=== PATIENT | female | born 2000 | race Two or more races ===

== ENCOUNTER 2025-03-21 10:18 | Inpatient (IN) | payer OTHER, SELFPAY ==
[2025-03-21] VITALS (33 sets, daily range): BP systolic 90–124; BP diastolic 44–79; PULSE 47–86; RESP 16–20; TEMP 36.6–37.3; O2SAT 94–100; BMI 24.7
--- NOTE | 2025-03-21 10:36 | CRLHL7_ITS ---
For Patients: As a result of the Century Cures Act, medical imaging exams and procedure reports are released immediately into your electronic medical record. You may view this report before your referring provider. If you have questions, please contact your health care provider. INDICATION: Right lower quadrant pain. TECHNIQUE: Axial intravenously infused CT cuts were performed from above the diaphragm to below the ischial tuberosities with the infusion of 56 mL of Isovue-370. Images were formatted and reviewed in the sagittal, axial and coronal planes. MIP images of the lung bases. COMPARISON: None. FINDINGS: There is a large abscess deep within the right side of the pelvis that measures approximately 6.9 x 4.9 cm in the axial plane and 5.2 cm cranial caudally. This most likely a tubo-ovarian abscess. There is large amount of free fluid in the pelvis. The appendix can not be identified with certainty. There is no free intraperitoneal air. The liver, spleen, pancreas, adrenals and kidneys appear normal. There are no enlarged retroperitoneal, mesenteric, iliac or inguinal lymph nodes. The uterus and urinary bladder appear normal. There are no nodules or masses the lung bases. There are no lytic or sclerotic skeletal lesions. IMPRESSION: Large abscess deep within the right side of the pelvis most likely representing a tubo-ovarian abscess. The appendix cannot be identified with certainty and therefore is likely not the source of inflammation. Please note that all CT scans at this facility use dose modulation, iterative reconstruction, and/or weight-based dosing when appropriate to reduce radiation dose to as low as reasonably achievable. Dictated by Chapin Oreilly MD @ 03/21/2025 12:15:35 PM (Electronically Signed)
--- NOTE | 2025-03-21 10:37 | ED_ITS ---
HPI - General Adult General Chief complaint: Abdominal Pain Stated complaint: abdominal pain Time Seen by Provider: 03/21/25 10:32 History of Present Illness HPI narrative: Patient is a 24-year-old woman who comes in today with approximately 6 hours of right lower quadrant pain. She states that she has had a torsed ovary in the past which reverted spontaneously to normal. Patient's pain is 610 located in the right lower quadrant. There is no radiation. She has had some vomiting but no fevers no chills no night sweats no dysuria. Patient came in by ambulance and is now feeling little bit better but still having quite a bit pain in the right lower quadrant. Related Data Home Medications ?Medication ?Instructions ?Recorded ?Confirmed No Known Home Medications 03/21/25 0805/07 Allergies Allergy/AdvReac Type Severity Reaction Status Date / Time Penicillins Allergy Intermediate Verified 03/21/25 11:29 tree nut Allergy Intermediate Verified 03/21/25 11:29 Review of Systems Status of ROS: Reports: 10 or more systems reviewed and unremarkable except as noted in History and below Exam Narrative: Exam Narrative: EXAM GENERAL: Patient appears comfortable and well. EYES: No scleral icterus. LYMPH: No supraclavicular or cervical lymphadenopathy. SKIN: Visible skin seen during exam normal or with benign process only. EXT: No dependent lower extremity pedal edema. HEART: Regular rate and rhythm with no murmurs, rubs, or gallops. LUNGS: Clear to auscultation bilaterally with no crackles or wheezes. ABD: Tender to palpation the right lower quadrant no other palpable abnormaliti es. PSYCH: Good eye contact, speech is not pressured. Const: Vital Signs, click to edit/add: Vital Signs - 24 hr 03/21/25 10:23 03/21/25 10:24 03/21/25 10:30 Temperature 97.8 F Pulse Rate 49 L 56 L Pulse Rate [Pulse Oximeter] 60 Respiratory Rate 20 Blood Pressure Blood Pressure [Ri ght Upper Arm] 124/73 Pulse Oximetry 99 99 94 Oxygen Delivery Me thod Room Air 03/21/25 10:31 03/21/25 10:46 03/21/25 10:49 Temperature Pulse Rate 58 L 57 L Pulse Rate [Pulse Oximeter] Respiratory Rate Blood Pressure 111/74 108/65 Blood Pressure [Ri ght Upper Arm] Pulse Oximetry 95 98 Oxygen Delivery Me thod 03/21/25 11:00 03/21/25 11:01 03/21/25 11:15 Temperature Pulse Rate 62 64 47 L Pulse Rate [Pulse Oximeter] Respiratory Rate Blood Pressure 110/58 L Blood Pressure [Ri ght Upper Arm] Pulse Oximetry 97 98 99 Oxygen Delivery Me thod 03/21/25 11:16 03/21/25 11:38 03/21/25 11:45 Temperature Pulse Rate 55 L 86 61 Pulse Rate [Pulse Oximeter] Respiratory Rate Blood Pressure 109/52 L Blood Pressure [Ri ght Upper Arm] Pulse Oximetry 98 99 100 Oxygen Delivery Me thod 03/21/25 11:47 03/21/25 12:00 03/21/25 12:01 Temperature Pulse Rate 53 L 47 L 48 L Pulse Rate [Pulse Oximeter] Respiratory Rate Blood Pressure 93/44 L 94/52 L Blood Pressure [Ri ght Upper Arm] Pulse Oximetry 100 98 98 Oxygen Delivery Me thod 03/21/25 12:15 03/21/25 12:16 03/21/25 12:38 Temperature Pulse Rate 51 L 54 L 66 Pulse Rate [Pulse Oximeter] Respiratory Rate Blood Pressure 90/52 L Blood Pressure [Ri ght Upper Arm] Pulse Oximetry 98 98 99 Oxygen Delivery Me thod 03/21/25 12:42 Temperature Pulse Rate Pulse Rate [Pulse Oximeter] Respiratory Rate Blood Pressure 107/60 Blood Pressure [Ri ght Upper Arm] Pulse Oximetry Oxygen Delivery Me thod Course Course ED Course: Patient seen examined. Serum CBC CMP lipase UA pending. CT abdomen pelvis pending. Vital Signs Vital signs: Initial Vital Signs Temperature 97.8 F 03/21/25 10:23 Temperature Source Temporal Artery Scan 03/21/25 10:23 Pulse Rate 60 03/21/25 10:23 Respiratory Rate 20 03/21/25 10:23 Blood Pressure 124/73 03/21/25 10:23 Blood Pressure Mean 90 03/21/25 10:23 Pulse Oximetry 99 03/21/25 10:23 Oxygen Delivery Method Room Air 03/21/25 10:23 Vital Signs Temperature 97.8 F 03/21/25 10:23 Pulse Rate 60 03/21/25 10:23 Respiratory Rate 20 03/21/25 10:23 Blood Pressure 124/73 03/21/25 10:23 Pulse Oximetry 99 03/21/25 10:23 Oxygen Delivery Method Room Air 03/21/25 10:23 Temperature 97.8 F 03/21/25 10:23 Pulse Rate 66 03/21/25 12:38 Respiratory Rate 20 03/21/25 10:23 Blood Pressure 107/60 03/21/25 12:42 Pulse Oximetry 99 03/21/25 12:38 Oxygen Delivery Method Room Air 03/21/25 10:23 Medical Decision Making MDM Narrative Medical decision making narrative: Patient is a 24-year-old woman comes in today with right lower quadrant pain. She has fairly substantial tubal ovarian abscess in the right lower quadrant CT scan. Has a white count that is elevated. Cultures are pending electrolytes are stable. I have been test with OBGYN we will be admitting for IV antibiotics and close observation to the roving department supervisor service. Lab Data Labs: Lab Results 03/21/25 03/21/25 Range/Units 10:50 12:37 WBC 16.66 H (4.50-11.00) K/uL RBC 4.35 (4.00-5.20) m/uL Hgb 12.5 (12.0-16.0) gm/dL Hct 37.5 (33.0-51.0) % MCV 86 (80-100) fL MCH 29 (26-34) pg MCHC 33 (32-36) gm/dL RDW Coeff of Aram 13.5 (11.5-15.5) % Plt Count 301 (140-440) K/uL Neut % (Auto) 88.2 H (42.0-72.0) % Lymph % (Auto) 7.1 L (20-44) % [place] % (Auto) 4.2 (0.0-11.0) % Eos % (Auto) 0.2 (0.0-7.0) % Baso % (Auto) 0.2 (0.0-3.0) % Neut # (Auto) 14.70 H (1.7-7.0) K/uL Lymph # (Auto) 1.20 (0.90-2.90) K/uL [place] # (Auto) 0.70 (0.00-0.90) K/UL Eos # (Auto) 0.00 (0.00-0.50) K/uL Baso # (Auto) 0.00 (0.00-0.30) K/uL Abs Immat Gran (auto) 0.00 (0.00-0.30) K/uL Imm/Tot Granulo (auto) 0.1 % Sodium 135 (135-149) mmol/L Potassium 3.8 (3.6-5.1) mmol/L Chloride 106 (96-114) mmol/L Carbon Dioxide 22 (20-32) mmol/L Anion Gap 7 (7-15) mEq/L BUN 15 (5-24) mg/dL Creatinine 0.5 (0.5-1.5) mg/dL Estimated GFR 133 ml/min Glucose 96 (60-115) mg/dL Calcium 8.9 (8.4-10.6) mg/dL Total Bilirubin 0.6 (0.1-1.5) mg/dL AST 36 H (12-35) U/L ALT 16 (4-35) U/L Alkaline Phosphatase 78 (40-150) U/L Total Protein 7.4 (6.0-8.3) g/dL Albumin 4.2 (3.3-5.0) g/dL Lipase 164 (23-300) U/L HCG, Qual Negative (Negative) Urine Color Yellow (Yellow) Urine Appearance Clear (Clear) Urine pH 6.5 (5.0-8.5) Ur Specific [place] 1.010 (1.000-1.030) Urine Protein Negative (Negative) Urine Glucose (UA) Negative (Negative) Urine Ketones 1+ A (Negative) Urine Blood Trace-intact A (Negative) Urine Nitrite Negative (Negative) Urine Bilirubin Negative (Negative) Urine Urobilinogen 0.2 (0.2-1.0) Ur Leukocyte Esterase Negative (Negative) Urine RBC 2-5 A (0-2) Urine WBC 0-2 (0-5) Ur Squamous Epith Cells Few (None-Few) Urine Bacteria None (None) Discharge Plan Discharge Clinical Impression: Right tubo-ovarian abscess Patient Disposition: Home, Self-Care Condition: Stable Instructions: Ovarian Abscess (ED) Activity Level: Other Discharge Diet: Other Prescriptions: No Action No Known Home Medications Follow Up/Referrals: Provider,Not a Local [Primary Care Provider, Family Practice] Stand Alone Forms: [facility] Support Servic[facility] Info Instructions
[2025-03-21 10:58] LABS: Hematocrit 37.5 % (33.0-51.0); Hemoglobin* 12.5 gm/dL (12.0-16.0); Immature Granulocytes Pct Auto 0.1 %; Mean Corpuscular HGB Conc 33 gm/dL (32-36); Mean Corpuscular Hemoglobin 29 pg (26-34); Mean Corpuscular Volume 86 fL (80-100); RDW Coefficient of Variation % 13.5 % (11.5-15.5); Red Blood Count 4.35 m/uL (4.00-5.20); White Blood Count* 16.66 K/uL (4.50-11.00)
[2025-03-21 10:59] LABS: Immature Granulocytes Abs Auto 0.00 K/uL (0.00-0.30); Lymphocytes Absolute Auto 1.20 K/uL (0.90-2.90); Slide Review Reflex No
[2025-03-21 11:09] LABS: Albumin* 4.2 g/dL (3.3-5.0); Chloride* 106 mmol/L (96-114); Sodium* 135 mmol/L (135-149)
[2025-03-21 11:10] LABS: Potassium* 3.8 mmol/L (3.6-5.1)
[2025-03-21 11:12] LABS: Alanine Aminotransferase* 16 U/L (4-35); Alkaline Phosphatase* 78 U/L (40-150); Anion Gap 7 mEq/L (7-15); Aspartate Amino Transferase* 36 U/L (12-35); Bilirubin Total* 0.6 mg/dL (0.1-1.5); Blood Urea Nitrogen* 15 mg/dL (5-24); Calcium* 8.9 mg/dL (8.4-10.6); Carbon Dioxide* 22 mmol/L (20-32); Creatinine* 0.5 mg/dL (0.5-1.5); Estimated Glomerular Filt Rate 133 ml/min; Glucose* 96 mg/dL (60-115); Total Protein* 7.4 g/dL (6.0-8.3)
[2025-03-21 11:26] LABS: HCG Qualitative Serum* Negative (Negative)
[2025-03-21 12:41] LABS: Appearance Urine Clear (Clear)
--- NOTE | 2025-03-21 13:04 | CRLHL7_ITS ---
For Patients: As a result of the Cures Act, medical imaging exams and procedure reports are released immediately into your electronic medical record. You may view this report before your referring provider. If you have questions, please contact your health care provider. INDICATION: Abscess. COMPARISON: CT scan of the abdomen and pelvis dated 21 March 2025. FINDINGS: A transabdominal and endovaginal pelvic ultrasound shows a uterus of normal size, contour, echogenicity. Normal appearance of the endometrial stripe which measures 8 mm in thickness. 7.7 x 6.7 x 3.8 cm irregular right ovarian cyst containing a small amount of debris. The right ovary is otherwise unremarkable. Color and spectral Doppler analysis shows normal appearance of the blood flow to the right ovary. The left ovary is not visualized. Small amount of echogenic free fluid in the pelvis. Impression : 1. 7.7 cm probable collapsing right ovarian cyst. 2. Small amount of probable hemorrhagic free fluid in the pelvis. Dictated by Vince Barker MD @ 03/21/2025 2:39:09 PM (Electronically Signed)
[2025-03-21] MEDS: DOXYCYCLINE HYCLATE 100 MG PO (13:57)
[2025-03-21] MEDS: cefTRIAXone 1 GM in 0.9 % SODIUM CHLORIDE Mini-bag 100 ML IVPB (13:58)
[2025-03-21] MEDS: ONDANSETRON 2 MG/ML inj 4 MG IVP (14:36)
[2025-03-21] MEDS: metroNIDAZOLE 500 MG/100 ML PIGGYBACK 100 MG IVPB (14:42)
[2025-03-21] MEDS: FLUCONAZOLE 150 MG TABLET PO (17:21)
--- NOTE | 2025-03-21 18:01 | PM.GYNCN1 ---
MANAGER OF MANUFACTURING - CN: HPI Data of Consult Date Seen: 03/21/25 Patient: Other Consult date: 03/21/25 Requesting Physician: Boni Villasenor MD Primary Care Provider: Not a Local Provider Consult Narrative Narrative: Yenni Ni is a 24 year old female who presented to the ER today with chief complaint of abdominal pain. This is present throughout her abdomen, worse in lower abdomen, and severe. She reports at least two other occasions of similarly severe pain. One was accompanied by a diagnosis of torsion that she was told had resolved by the time she presented to the hospital. The other was accompanied by a ruptured ovarian cyst. She is G0. She is currently sexually active and using condoms for contraception. She denies any history of abnormal pap or STI. She has not had diminshed appetite. In fact, she asks when she can next eat during our interview. Pertinent labs and studies are as noted below. In summary, the CT of abdomen and pelvis was read as pelvic abscess. The subsequent pelvic US was read as hemorrhage ovarian cyst with small amount of free pelvic fluid; this looks like blood to my eye. cc:: CC: Hitesh Abad MD [facility] Medical History (Updated 03/21/25 @ 18:25 by Maria Day MD) Recurrent vaginitis ?N76.0 - Acute vaginitis (ICD-10) Vasculitis ?I77.6 - Arteritis, unspecified (ICD-10) Sinusitis ?J32.9 - Chronic sinusitis, unspecified (ICD-10) Surgical History (Updated 03/21/25 @ 18:07 by Maria Day MD) No pertinent past surgical history ?Z78.9 - Other specified health status (ICD-10) Family History (Updated 03/21/25 @ 18:09 by Maria Day MD) Brother Asthma Father Diabetes Mother Diabetes Sister Cholelithiasis Social History (Updated 03/21/25 @ 18:10 by Maria Day MD) Narrative: She is from [facility]. 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 She drinks alcohol occasionally. She doesn't smoke or use recreational drugs. Meds Home Medications and Allergies Home Medications ?Medication ?Instructions ?Recorded ?Confirmed ?Type No Known Home Medications 03/21/25 03/21/25 History Allergies Allergy/AdvReac Type Severity Reaction Status Date / Time Penicillins Allergy Intermediate Verified 03/21/25 11:29 tree nut Allergy Intermediate Verified 03/21/25 11:29 MANAGER OF MANUFACTURING - Exam Physical Exam: Vital signs: Temp Pulse Resp BP Pulse Ox O2 Del Method 97.8 F 76 20 111/69 98 Room Air 03/21/25 10:23 03/21/25 14:46 03/21/25 10:23 03/21/25 14:46 03/21/25 14:46 03/21/25 10:23 Narrative: Physical exam: General: No acute distress Psych: Alert and oriented x3, full affect HEENT: Normocephalic, atraumatic Heart: Regular rate and rhythm, no murmur rub or gallop Lungs: Clear to auscultation bilaterally Abdomen: Soft, no distention, diffuse mild tenderness without rebound or guarding. Exam is performed after patient has been treated with IV Dilaudid. Lower extremities: No edema or erythema Pelvic exam: Deferred MANAGER OF MANUFACTURING - Results Labs Labs: Short CBC HCG is negative. CRP <0.5. 03/21/25 Range/Units 10:50 WBC 16.66 H (4.50-11.00) K/uL Hgb 12.5 (12.0-16.0) gm/dL Hct 37.5 (33.0-51.0) % Plt Count 301 (140-440) K/uL BMP 03/21/25 10:50 Sodium 135 Potassium 3.8 Chloride 106 Carbon Dioxide 22 BUN 15 Creatinine 0.5 Glucose 96 Calcium 8.9 Liver Function 03/21/25 Range/Units 10:50 Total Bilirubin 0.6 (0.1-1.5) mg/dL AST 36 H (12-35) U/L ALT 16 (4-35) U/L Alkaline Phosphatase 78 (40-150) U/L Albumin 4.2 (3.3-5.0) g/dL Urine 03/21/25 Range/Units 12:37 Urine Color Yellow (Yellow) Urine Appearance Clear (Clear) Urine pH 6.5 (5.0-8.5) Ur Specific [place] 1.010 (1.000-1.030) Urine Protein Negative (Negative) Urine Glucose (UA) Negative (Negative) Imaging US - abdomen: Attestation: I have reviewed the pertinent imaging results. My impression: Pelvic US shows blood in cul-de-sac and large ovarian cyst Radiologist's impression: Pelvic US Impression : 1. 7.7 cm probable collapsing right ovarian cyst. 2. Small amount of probable hemorrhagic free fluid in the pelvis. CT of abdomen / pelvis IMPRESSION: Large abscess deep within the right side of the pelvis most likely representing a tubo-ovarian abscess. The appendix cannot be identified with certainty and therefore is likely not the source of inflammation. Assessment and Plan Assessment and plan (1) Hemorrhagic ovarian cyst: Status: Acute Assessment and Plan: Large hemorrhagic ovarian cyst with some blood in posterior cul-de-sac. Patient with stable vital signs and no anemia. While official read of the CT gave diagnosis of pelvic abscess, the US findings do not support this. While she does have has slight leukocytosis with left shift, she is afebrile and has low CRP. If the free fuid in her culd-de-sac were pus, I suspect that she would be magnificently ill. I intend to hospitalize her for observation and pain control. I will repeat CBC in the AM. If symptoms improve, I will discharge with recommendations to repeat imaging in 6 weeks and pursue follow up clinic visit for initiation of contraception that would also suppress ovulation. She favors Nexplanon. (2) Recurrent candidiasis of vagina: Status: Acute Assessment and Plan: She experiences this whenever she receives antibiotics, and did receive one dose on IV antibiotic after the CT but before the pelvic US. I opted to give her a single oral dose of fluconazole. In addition, given her family history, I plan to test her HbA1c tomorrow AM to rule out diabetes. Total Time Spent Total Time Spent: 60
--- NOTE | 2025-03-21 20:05 | PC.NURSE ---
End of shift [id number] - Pt arrived from ED at approximately 1640. Pt up independently in room, tolerating RA and regular diet/fluids. Pt reported pain in abdomen as 3/10, declined medication offered by RN per OCT. Provided with heat per pt request for improved comfort. Pt appears to be resting comfortably in bed with call light within reach at end of shift.
[2025-03-21] MEDS: ACETAMINOPHEN 325 MG TABLET PO (20:58)
[2025-03-21] MEDS: SODIUM CHLORIDE 0.9 % (FLUSH) 10 ML SYRINGE 5 ML IVF (21:04)
[2025-03-21] MEDS: CLOTRIMAZOLE 1 % CREAM 1 APPLIC TOPICAL (22:07)
[2025-03-22] VITALS (16 sets, daily range): BP systolic 77–123; BP diastolic 49–70; PULSE 60–93; RESP 14–18; TEMP 36.4–37; O2SAT 93–100
[2025-03-22] MEDS: OMEPRAZOLE 20 MG CAPSULE DR 40 MG PO (06:16)
[2025-03-22 06:28] LABS: Hematocrit 37.8 % (33.0-51.0); Hemoglobin* 12.3 gm/dL (12.0-16.0); Immature Granulocytes Abs Auto 0.20 K/uL (0.00-0.30); Immature Granulocytes Pct Auto 1.1 %; Mean Corpuscular HGB Conc 33 gm/dL (32-36); Mean Corpuscular Hemoglobin 28 pg (26-34); Mean Corpuscular Volume 87 fL (80-100); RDW Coefficient of Variation % 13.8 % (11.5-15.5); Red Blood Count 4.34 m/uL (4.00-5.20); White Blood Count* 18.27 K/uL (4.50-11.00)
[2025-03-22 06:40] LABS: Lymphocytes Absolute Auto 0.90 K/uL (0.90-2.90); Slide Review Reflex No
--- NOTE | 2025-03-22 06:41 | PC.NURSE ---
Pt is alert and oriented x3. Afebrile. Pt reports 0-5/10 pain in abdomen, pain managed with PRN medication and Aqua K pad. Pt is up ad elvis in room, voiding and tolerating a regular diet.
[2025-03-22] MEDS: IBUPROFEN 400 MG TABLET PO (08:52)
[2025-03-22] MEDS: SODIUM CHLORIDE 0.9 % (FLUSH) 10 ML SYRINGE 5 ML IVF ×2 (08:54→11:54)
--- NOTE | 2025-03-22 11:23 | PM.GYNPNNOR ---
Progress Note: A&P Assessment and plan (1) Hemorrhagic ovarian cyst: Status: Acute Assessment and Plan: Yenni johns continues to have pain impeding her movement. Given the significant size of the ovarian cyst on imaging, and the amount of pain, I favor a laparoscopy with removal of ovarian cyst. This will further decrease her risk of torsion. I a.m. additionally concerned with the rise in her white cell count with continuing left shift, and a new elevation of her CRP. This is likely attributable to hemoperitoneum, but I feel it prudent to confirm the absence of infection. Thus, I will obtain gonorrhea and chlamydia vaginal swab. I discussed my recommendations for laparoscopy with right ovarian cystectomy with the patient. I discussed the risks of bleeding, hemorrhage requiring transfusion, infection, damage to internal organs, possibility of need to remove right ovary and tube, and possibility of needing to convert to laparotomy. I discussed post-op restrictions, including avoidance of heavy lifting, need for narcotic medications, and avoiding submerging incisions under water. Consent form is reviewed with and signed by patient. No preoperative antibiotics. NPO now for likely surgery at 5 PM. SOCIAL RESEARCH ASSISTANT- PN:Subj Non-OR Subjective Date Seen: 03/22/25 Interval history: Yenni is a 24-year-old woman on hospital day 2 after admission for observation for pain secondary to ruptured hemorrhagic right ovarian cyst. She was treated with IV morphine and oral oxycodone admission. She reports that pain has overall improved overnight, but is still significant enough to impair her movement. Her appetite continues to be normal. She ate breakfast, finishing at 9:00 a.m.. SOCIAL RESEARCH ASSISTANT-PN: Obj Exam Physical Exam: Vital signs: Temp Pulse Resp BP Pulse Ox O2 Del Method 98.4 F 88 16 111/58 L 98 Room Air 03/22/25 07:00 03/22/25 07:00 03/22/25 07:00 03/22/25 07:00 03/22/25 07:03/22/25 07:00 Narrative: General: Pleasant, no acute distress, sitting in bed with a heating pad on her abdomen, wincing when she changes position Heart: Regular rate and rhythm, no murmur or gallop Lungs: Clear to auscultation bilaterally Abdomen: Normoactive bowel sounds, soft, diffusely tender to palpation, most notable in the right lower quadrant. Lower extremities: No edema or erythema SOCIAL RESEARCH ASSISTANT - PN: Obj Data Labs Labs: Laboratory Results - last 24 hr 03/21/25 03/21/25 03/21/25 10:50 12:37 13:15 WBC RBC Hgb Hct MCV MCH MCHC RDW Coeff of [place]am Plt Count Neut % (Auto) Lymph % (Auto) [place] % (Auto) Eos % (Auto) Baso % (Auto) Neut # (Auto) Lymph # (Auto) [place] # (Auto) Eos # (Auto) Baso # (Auto) Abs Immat Gran (auto) Imm/Tot Granulo (auto) Hemoglobin A1c C-Reactive Protein < 0.5 L HCG, Qual Negative Urine Color Yellow Urine Appearance Clear Urine pH 6.5 Ur Specific [place] 1.010 Urine Protein Negative Urine Glucose (UA) Negative Urine Ketones 1+ A Urine Blood Trace-intact A Urine Nitrite Negative Urine Bilirubin Negative Urine Urobilinogen 0.2 Ur Leukocyte Esterase Negative Urine RBC 2-5 A Urine WBC 0-2 Ur Squamous Epith Cells Few Urine Bacteria None 03/22/25 06:15 WBC 18.27 H RBC 4.34 Hgb 12.3 Hct 37.8 MCV 87 MCH 28 MCHC 33 RDW Coeff of [place]am 13.8 Plt Count 289 Neut % (Auto) 92.0 H Lymph % (Auto) 5.0 L [place] % (Auto) 1.7 Eos % (Auto) 0.1 Baso % (Auto) 0.1 Neut # (Auto) 16.80 H Lymph # (Auto) 0.90 [place] # (Auto) 0.30 Eos # (Auto) 0.00 Baso # (Auto) 0.00 Abs Immat Gran (auto) 0.20 Imm/Tot Granulo (auto) 1.1 Hemoglobin A1c 5.4 C-Reactive Protein 7.3 H HCG, Qual Urine Color Urine Appearance Urine pH Ur Specific [place] Urine Protein Urine Glucose (UA) Urine Ketones Urine Blood Urine Nitrite Urine Bilirubin Urine Urobilinogen Ur Leukocyte Esterase Urine RBC Urine WBC Ur Squamous Epith Cells Urine Bacteria
[2025-03-22] MEDS: LACTATED RINGERS 1000 ML 1,000 ML 125 ML IV ×2 (12:02→20:01)
[2025-03-22 13:25] LABS: Chlamydia DNA Amplified* NOT DETECTED (No Detected); GC DNA Amplified* NOT DETECTED (No Detected)
--- NOTE | 2025-03-22 17:43 | PC.NURSE ---
Shift Summary: Patient pleasant and cooperative. Up independently. Patients phone not here, called boss and she stated she will drop it off this evening. Patient NPO since 0900, surgery planned for this afternoon. Rates pain 3-11/20. Pain managed with PRN medication, see MAR. Pre-op completed.
[2025-03-22] MEDS: metroNIDAZOLE 500 MG/100 ML PIGGYBACK 100 MG IVPB (20:38)
[2025-03-22] MEDS: cefTRIAXone 1 GM in 0.9 % SODIUM CHLORIDE Mini-bag 100 ML IVPB (21:16)
--- NOTE | 2025-03-22 21:24 | PM.GSPRC ---
Operative Note Date of procedure: 03/22/25 Pre-op diagnosis: Hemorrhagic ovarian cyst Post-op diagnosis: Same Type of Procedure: Laparoscopic appendectomy Indications: Patient is a 24-year-old female who was having a laparoscopic for a large hemorrhagic ovarian cyst. During the procedure it was noted that her appendix was inflamed so an intraoperative consultation was requested. Please see Dr. Day's consultation note for full discussion regarding recommendations to proceed with the initial operation. Procedure Description: Patient was intubated with laparoscopic equipment on the field. Dr. Day was evaluating the left ovarian cyst and endometriosis within the pelvis. I scrubbed in and identified the appendix, which did appear mildly dilated with a mass in the mid body. On gentle palpation this did appear to be consistent with a fecalith. The serosa was slightly hemorrhagic. Concern for an early developing appendicitis versus secondary inflammation from the patient's hemorrhagic ovarian cyst. On chart review the patient had a rising white blood cell count and CRP. Given the dilation and inflammation noted intraoperatively recommendations were to proceed with a laparoscopic appendectomy. Patient is originally from [place] with no family members present. Three 5 mm ports had already been placed by Dr. Day. This included an umbilical port and 2 left-sided ports. I exchanged the middle port for a 12 mm. The body of the appendix was grasped and retracted cephalad. A mesenteric window was created with the laparoscopic [place]. A 30 mm laparoscopic vascular load was used to transect the appendiceal base. An additional 45 mm laparoscopic vascular load transected the mesentery. The staple lines were inspected and hemostasis was excellent. The appendix was placed into an Endo-Catch bag and removed from the abdomen. It was passed off to be sent to pathology. I then left the operating room to allow Dr. Day to continue with her procedure. Findings: Dilated and inflamed appendix, concerning for early developing appendicitis. Anesthesia: GETA Surgeon: Batsheva Frazier MD Estimated blood loss (mL): 0 Specimen: Appendix Condition: stable Disposition: no change
[2025-03-22] MEDS: DOXYCYCLINE HYCLATE 100 MG in 0.9 % SODIUM CHLORIDE Mini-bag 100 ML IVPB (21:45)
[2025-03-22] MEDS: BUPIVACAINE 0.25% 30 ML INJECTION (21:55)
--- NOTE | 2025-03-22 22:35 | P.ANES_ITS ---
Anesthesia Charges Start Date/Time Anesthesia Start Date: 03/22/25 Anesthesia Start Time: 19:30 Stop Date/Time Anesthesia Stop Date: 03/22/25 Anesthesia Stop Time: 22:28 Coding CPT Codes CPT Codes: ANESTH SURG LOWER ABDOMEN - 93557 ([id number]) P1 - NORMAL HEALTHY PATIENT, QZ - TECHNICIAN PLANT AND MAINTENANCE SVC W/O KITMAN BY
--- NOTE | 2025-03-22 22:35 | W.ANESCHARGE ---
Anesthesia Charges Start Date/Time Anesthesia Start Date: 03/22/25 Anesthesia Start Time: 19:30 Stop Date/Time Anesthesia Stop Date: 03/22/25 Anesthesia Stop Time: 22:28 Coding CPT Codes CPT Codes: ANESTH SURG LOWER ABDOMEN - 94647 ([id number]) P1 - NORMAL HEALTHY PATIENT, QZ - MOVIE STAR SVC W/O TIP MENDER BY
--- NOTE | 2025-03-22 22:43 | W.PM.GYNPROC ---
Procedure Note Date of procedure: 03/22/25 Will [facility] bill your pro fee for this procedure?: Yes Pre-op diagnosis: Ruptured right ovarian cyst Post-op diagnosis: Endometriosis with apparent ruptured endometrioma Pelvic adhesions Nodularity of appendix Procedure: Laparoscopy with lysis of adhesions, fulguration and excision of endometriosis Incidental appendectomy performed by Dr. Batsheva Frazier Anesthesia: GETA Complications: None Surgeon: Maria Day MD Estimated blood loss (mL): 10 IV fluids (mL): 700 Urine Output (mL): 75 Pathology: specimen obtained, sent to pathology (Biopsies of: 1. left uterosacral ligament, 2. Right ovarian adhesion, 3. Right ovarian cortex) Condition: stable Disposition: PACU Findings: 1. Upon pelvic exam under anesthesia, the cervix and vagina were normal in appearance. Uterus was mobile and retroverted, of normal size and texture. There was a palpable right adnexal mass. 2. Upon laparoscopy, brown blood was present in small amounts throughout the peritoneal cavity. Survey of the upper abdomen revealed a normal appearance to the inferior edge of the liver, gallbladder and stomach. Bowels were grossly normal appearance. The appendix exhibited a nodularity in its proximal portion and the serosa was injected in appearance. Survey of the pelvis revealed the right ovary to be multi cystic and adherent to the right pelvic sidewall adjacent to the posterior lower uterine segment. There were multiple pockets of cystic fluid that more oozing dark brown viscous material. The ovary was enlarged. There were endometriosis implants along the cortex at multiple locations. There was also evidence of a corpus luteum. The left ovary, in contrast, was abnormally small, perhaps 2 cm in greatest dimension, and rather linear in appearance. Bilateral tubes were normal in appearance. The cul-de-sac exhibited multiple superficial endometriotic implants. The left uterosacral exhibited several days deeply infiltrating endometriotic implants. There was endometriosis along the peritoneum of the left posterior uterine segment. There were multiple blebs of serosa along the posterior surface of the uterus. Once the adhesions of the right ovary to the right pelvic sidewall were lysed, the serosa in this area was irregular but did not exhibit obvious endometriotic implants. The anterior uterus and the bladder reflection were normal in appearance. Procedure Description: Patient was taken to the operating room with IV running. She was positioned in dorsal lithotomy position with her legs fully supported in Yellofin stirrups. General anesthesia was administered. She was prepped and draped in the usual sterile fashion. Bimanual exam was performed for the above-noted findings. Speculum was inserted. A single-toothed uterine manipulator was inserted through the cervix into the lower uterine segment, and affixed to the anterior cervical lip. Speculum was removed. Wilburn catheter was placed. Patient's legs were placed in neutral position. Attention was turned to patient's abdomen. The infraumbilical area was infiltrated with small amount of Marcaine. An infraumbilical incision was made with a scalpel and carried through to the underlying layer of fascia with a hemostat. The 5 mm Fios Kii trocar was assembled with laparoscope within, and insufflator attached. While tenting up the abdomen manually, the trocar was passed through the anterior abdominal wall into the peritoneal cavity. Trocar was removed. Pneumoperitoneum was achieved. Survey of abdomen and pelvis revealed the above-noted findings. Three additional port sites were created. The first was in the patient's left lower quadrant, just superior medial to the left ASIS. The second was a hand's breath superior to and slightly medial to the first. The third was in the patient's right lower quadrant, just superior medial to the right ASIS. Each was infiltrated with small amount of Marcaine prior to incision. Initially, a 5 mm incision was made at each site. A 5 mm Fios Kii port was inserted at each site, each under direct visualization and without complication. The balloon on the 5 mm ports was inflated, holding each in place. Dr. Frazier later replaced the port in the left upper quadrant with an 11 mm Visiport. The brown fluid in the cul-de-sac was 1st removed with suction and sent to pathology for Gram stain and culture. There was approximately 50 mL of fluid in the cul-de-sac. Thereafter, the pelvis was irrigated. The right ovary was grasped opposite the adhesions to the sidewall. The right ureter was identified and found to be out of harm's way. The adhesions to the sidewall were sharply dissected away, ultimately mobilizing the right ovary. In the process, multiple cystic areas were ruptured, spilling dark brown fluid. Each of the cystic cavities in this markedly enlarged ovary were explored, requiring incisions in the cortex at 2 sites. An area of the cortex that showed brown staining consistent with endometriosis was excised. Otherwise, the cyst herman were examined and found to be hemostatic. There were at least 4 cystic components to this markedly enlarged ovary of unusual contour; each cyst was hemostatic, at least 1 was a corpus luteum cyst, and I was unable to tell a difference between the functional ovarian cysts and endometriomas on gross examination. Given her age, and the abnormally small appearance of her left ovary, I opted not to remove the right ovary and instead excised a small portion of the cortex that exhibited obvious endometriosis. Otherwise, obvious implants of endometriosis on the surface of the ovary were fulgurated. Hemostasis was noted. The deeply infiltrating endometriosis in the left uterosacral ligament was sharply excised and biopsy sent to pathology. The more superficial implants were fulgurated with monopolar cautery along the left uterosacral ligament, along the posterior left lower uterine segment, and in the cul-de-sac. Along the posterior uterus, there were some irregularities of the serosa, small which appeared vesicular and some that appeared almost shaggy and filmy. These were diffuse. One was peeled off, and then the bed of this was fulgurated. The pelvis was copiously irrigated. Hemostasis was noted. Approximately 300 mL of saline was left in the patient's pelvis in hopes of preventing further adhesions. Please refer to Dr. Frazier's note for full detail of appendectomy. The 11 mm port was removed while maintaining pneumoperitoneum. The Kenneth-Kezia device was used to close the fascia with a single stitch of 0 Vicryl. The instruments were removed from all ports and pneumoperitoneum was released. The balloon tips of each were deflated and the ports were removed. The Bovie was used to obtain hemostasis at all port sites. The skin was closed with a subcuticular stitch of 4-0 Monocryl. Surgical glue was applied above this. The uterine manipulator was removed. Hemostasis of the cervix was noted. Wilburn catheter was removed. Ultimately, patient was given metronidazole 500 mg IV, doxycycline 100 mg IV, and ceftriaxone 1 g IV intraoperatively. Patient tolerated procedure well and was taken to recovery area in stable condition.
[2025-03-23] VITALS (8 sets, daily range): BP systolic 76–119; BP diastolic 52–79; PULSE 51–76; RESP 14–18; TEMP 36.4–37.4; O2SAT 97–99
[2025-03-23] MEDS: LACTATED RINGERS 500 ML 500 ML IV (00:21)
[2025-03-23] MEDS: LACTATED RINGERS 1000 ML 1,000 ML 40 ML IV (00:22)
[2025-03-23] MEDS: ACETAMINOPHEN 500 MG TABLET 1000 MG PO (00:22)
[2025-03-23 00:55] LABS: Hematocrit 33.2 % (33.0-51.0); Hemoglobin* 10.7 gm/dL (12.0-16.0); Immature Granulocytes Pct Auto 1.4 %; Mean Corpuscular HGB Conc 32 gm/dL (32-36); Mean Corpuscular Hemoglobin 29 pg (26-34); Mean Corpuscular Volume 88 fL (80-100); RDW Coefficient of Variation % 14.0 % (11.5-15.5); Red Blood Count 3.76 m/uL (4.00-5.20); White Blood Count* 15.35 K/uL (4.50-11.00)
[2025-03-23 00:58] LABS: Immature Granulocytes Abs Auto 0.20 K/uL (0.00-0.30); Lymphocytes Absolute Auto 0.30 K/uL (0.90-2.90); Slide Review Reflex No
[2025-03-23 01:19] LABS: INR 1.19 (0.91-1.10); Prothrombin Time 16.0 Seconds
[2025-03-23 02:59] LABS: Hepatitis B Surface Antigen* Negative (Negative)
[2025-03-23 03:09] LABS: HIV 1/2/P24 Combo Screen* Negative (Negative)
[2025-03-23 03:17] LABS: Hepatitis C Virus Antibody* Negative (Negative)
[2025-03-23] MEDS: SODIUM CHLORIDE 0.9 % (FLUSH) 10 ML SYRINGE 5 ML IVF (04:24)
[2025-03-23 06:12] LABS: Hematocrit 34.5 % (33.0-51.0); Hemoglobin* 11.1 gm/dL (12.0-16.0); Immature Granulocytes Pct Auto 0.2 %; Lymphocytes Absolute Auto 0.70 K/uL (0.90-2.90); Mean Corpuscular HGB Conc 32 gm/dL (32-36); Mean Corpuscular Hemoglobin 29 pg (26-34); Mean Corpuscular Volume 89 fL (80-100); RDW Coefficient of Variation % 14.3 % (11.5-15.5); Red Blood Count 3.90 m/uL (4.00-5.20); White Blood Count* 12.53 K/uL (4.50-11.00)
[2025-03-23 06:18] LABS: Immature Granulocytes Abs Auto 0.00 K/uL (0.00-0.30); Slide Review Reflex No
[2025-03-23] MEDS: OMEPRAZOLE 20 MG CAPSULE DR 40 MG PO (06:50)
--- NOTE | 2025-03-23 06:54 | PC.NURSE ---
[id number] Pt returned from PACU approx 2215, light headed/dizzy, pain 5/10, updated MD, bolus administered with increase in BP, pt then denied feeling light headed and dizzy. pain controlled with oral and scheduled pain medications. Pt tolerating PO intake, denies N/V. ambulated halls x1, tolerated activity well. Ice to abdomen as patient tolerates. lap sites C/D/I
--- NOTE | 2025-03-23 08:02 | PM.GSPN ---
Subjective Subjective Date Seen: 03/23/25 Interval history: Patient has some tenderness at the incision sites, but overall doing well. She was up walking to the bathroom this morning. She has been tolerating some liquids. No acute concerns. Exam Narrative: Exam Narrative: General: Alert and oriented, no acute distress Abdomen: Soft, appropriately tender over incision sites. Const: Vital Signs, click to edit/add: Vital Signs - 24 hr 03/22/25 11:00 03/22/25 15:54 03/22/25 19:25 Temperature 97.8 F 97.8 F 98.6 F Pulse Rate Pulse Rate [Pulse Oximeter] 70 80 85 Respiratory Rate 16 16 18 Blood Pressure Blood Pressure [Ri ght Arm] 116/63 118/62 123/65 Pulse Oximetry 100 98 93 Oxygen Delivery Me thod Room Air Room Air Room Air 03/22/25 22:28 03/22/25 22:30 03/22/25 22:35 Temperature 98.5 F Pulse Rate 93 85 74 Pulse Rate [Pulse Oximeter] Respiratory Rate 16 16 16 Blood Pressure 77/51 L 84/51 L 99/64 Blood Pressure [Ri ght Arm] Pulse Oximetry 99 99 99 Oxygen Delivery Me thod Room Air Room Air Room Air 03/22/25 22:40 03/22/25 22:45 03/22/25 22:50 Temperature Pulse Rate 67 70 64 Pulse Rate [Pulse Oximeter] Respiratory Rate 16 14 14 Blood Pressure 99/59 L 104/50 L 101/49 L Blood Pressure [Ri ght Arm] Pulse Oximetry 98 95 96 Oxygen Delivery Me thod Room Air Room Air Room Air 03/22/25 22:55 03/22/25 23:00 03/22/25 23:00 Temperature 98.5 F Pulse Rate 65 60 Pulse Rate [Pulse Oximeter] 73 Respiratory Rate 14 14 Blood Pressure 106/52 L 100/50 L Blood Pressure [Ri ght Arm] Pulse Oximetry 95 94 Oxygen Delivery Me thod Room Air Room Air 03/22/25 23:16 03/22/25 23:31 03/22/25 23:46 Temperature 97.6 F 98.3 F 98.2 F Pulse Rate Pulse Rate [Pulse Oximeter] 64 66 64 Respiratory Rate 14 16 14 Blood Pressure Blood Pressure [Ri ght Arm] 111/65 119/63 105/70 Pulse Oximetry 98 97 97 Oxygen Delivery Me thod Room Air Room Air Room Air 03/23/25 00:01 03/23/25 00:31 03/23/25 01:01 Temperature 97.6 F 97.6 F 97.6 F Pulse Rate Pulse Rate [Pulse Oximeter] 52 L 73 59 L Respiratory Rate 14 16 16 Blood Pressure Blood Pressure [Ri ght Arm] 76/52 L 108/58 L 118/63 Pulse Oximetry 97 97 97 Oxygen Delivery Me thod Room Air Room Air Room Air 03/23/25 02:01 03/23/25 03:01 03/23/25 04:01 Temperature 99.3 F 98.9 F Pulse Rate Pulse Rate [Pulse Oximeter] 68 51 L 68 Respiratory Rate 14 14 16 Blood Pressure Blood Pressure [Ri ght Arm] 105/55 L 107/54 L 104/57 L Pulse Oximetry 98 99 99 Oxygen Delivery Me thod Room Air Room Air Room Air Labs/Imaging Labs Labs: Leukocytosis trending down (15--12) Progress Note:A&P Assessment and plan (1) Status post appendectomy: Status: Acute Assessment and Plan: Patient is postop day 1 for a laparoscopic procedure secondary to a hemorrhagic ovarian cyst. Dilation and mildly inflamed appendix noted intraoperatively. Patient underwent a laparoscopic appendectomy without complication. I discussed this with the patient at length this morning. All questions were addressed. Vital signs stable overnight. No acute events. Currently tolerating a regular diet. Plan Patient is okay to discharge from a general surgery perspective. Please have her follow-up with gynecology postoperatively.
[2025-03-23] MEDS: DOXYCYCLINE HYCLATE 100 MG PO (08:51)
[2025-03-23] MEDS: DOCUSATE SODIUM 100 MG CAPSULE PO (13:08)
--- NOTE | 2025-03-23 13:31 | PC.SOCIAL ---
Addendum entered by WILLIAM Bee 03/23/25 15:14: Follow up phone call placed to Corinne at [phone]. Corinne informs that she has secured a ride and another co-worker will orange picker patient from the hospital around 5pm today. Received a phone call confirming that patient's co-worker is in route to the [facility] and will be here around 5pm. Phone number to individual providing ride is [phone]. Met with patient bedside and provided update. Discussed pharmacy with patient. Patient will have to private pay for medications and money is in her belongings in [place]. Patient would like medications sent to [facility] pharmacy in [place]. Provided update to charge nurse, and pharmacy was updated. Patient is requesting a medical note for work with any work restrictions patient will have. Line Repairer provided update to charge nurse. Original Note: Discharge planning- Nursing has been unable to get patient's passport and phone from master control supervisor at [facility] ([facility]). [facility] was at [facility] when patient came to hospital, but has since left the [facility] [place]. Patient has no concerns for safety or human trafficking concerns related to her employer. Patient states that master control supervisor/co-workers will pick her up when she is ready to discharge. Patient would like to return to [employer] to get her [facility]. Patient has a boyfriend (Av [phone]) whom is in [place] this week and will pick her up when she gets her belongings from the [employer]. Patient reports that Av will be helping patient get back to [place]. Patient's master control supervisor is Tamela ([phone]). Line Repairer placed phone call to Tamela and left [facility] [employer] requesting a return phone call. Patient provided screen writer with another co-workers phone number (Corinne [phone]). Line Repairer will reach out to Corinne regarding transportation. Discussed the option of patient discharging to a hotel room in [place] with funding assistance from the [facility]. Patient is open to this idea, if her employer is not able to pick her up right away. Phone call placed to Corinne (patient's co-worker). Line Repairer had a conversation with Corinne regarding transportation for patient. Corinne informs that someone from [facility] [employer] would be able pick patient up at the hospital today, but she would need to know a time that patient would be ready. Line Repairer informs screen writer will follow up with Corinne when the MD clears patient for discharge. Page placed to Dr. Mullen at [phone]. Received a phone call from Dr. Mullen requesting information on when patient would be medically stable so screen writer can develop a discharge plan. Dr. Mullen informs if patient tolerates lunch, so could potentially be medically stable as early as this afternoon. Provided update to med/surg charge nurse. Social work will continue to follow up as needed to develop a discharge plan.
--- NOTE | 2025-03-23 15:01 | P.DS_ITS ---
DS: Providers Provider Time Seen by Provider: 07:45 Date Seen: 03/23/25 Date of admission: 03/22/25 11:34 Primary care physician: Not a Local Provider Admitting Clinician: Hitesh Abad MD Consults: 03/23/25 07:49 Consult to Transit Coach Operator [CONS] Routine Comment: needed for transportation and living conditions Reason for Consult:: Social Service Consult Attending Physician on discharge: Hitesh Abad MD Date of Discharge: 03/23/25 DS: Diagnosis Discharge Diagnosis (1) Endometriosis determined by laparoscopy: Status: Acute (2) Status post appendectomy: Status: Acute (3) Hemorrhagic ovarian cyst: Status: Acute Exam Const: Vital Signs, click to edit/add: Vital Signs - 24 hr 03/22/25 15:54 03/22/25 19:25 03/22/25 22:28 Temperature 97.8 F 98.6 F 98.5 F Pulse Rate 93 Pulse Rate [Pulse Oximeter] 80 85 Respiratory Rate 16 18 16 Blood Pressure 77/51 L Blood Pressure [Ri ght Arm] 118/62 123/65 Pulse Oximetry 98 93 99 Oxygen Delivery Me thod Room Air Room Air Room Air 03/22/25 22:30 03/22/25 22:35 03/22/25 22:40 Temperature Pulse Rate 85 74 67 Pulse Rate [Pulse Oximeter] Respiratory Rate 16 16 16 Blood Pressure 84/51 L 99/64 99/59 L Blood Pressure [Ri ght Arm] Pulse Oximetry 99 99 98 Oxygen Delivery Me thod Room Air Room Air Room Air 03/22/25 22:45 03/22/25 22:50 03/22/25 22:55 Temperature Pulse Rate 70 64 65 Pulse Rate [Pulse Oximeter] Respiratory Rate 14 14 14 Blood Pressure 104/50 L 101/49 L 106/52 L Blood Pressure [Ri ght Arm] Pulse Oximetry 95 96 95 Oxygen Delivery Me thod Room Air Room Air Room Air 03/22/25 23:00 03/22/25 23:00 03/22/25 23:16 Temperature 98.5 F 97.6 F Pulse Rate 60 Pulse Rate [Pulse Oximeter] 73 64 Respiratory Rate 14 14 Blood Pressure 100/50 L Blood Pressure [Ri ght Arm] 111/65 Pulse Oximetry 94 98 Oxygen Delivery Me thod Room Air Room Air 03/22/25 23:31 03/22/25 23:46 03/23/25 00:01 Temperature 98.3 F 98.2 F 97.6 F Pulse Rate Pulse Rate [Pulse Oximeter] 66 64 52 L Respiratory Rate 16 14 14 Blood Pressure Blood Pressure [Ri ght Arm] 119/63 105/70 76/52 L Pulse Oximetry 97 97 97 Oxygen Delivery Me thod Room Air Room Air Room Air 03/23/25 00:31 03/23/25 01:01 03/23/25 02:01 Temperature 97.6 F 97.6 F Pulse Rate Pulse Rate [Pulse Oximeter] 73 59 L 68 Respiratory Rate 16 16 14 Blood Pressure Blood Pressure [Ri ght Arm] 108/58 L 118/63 105/55 L Pulse Oximetry 97 97 98 Oxygen Delivery Me thod Room Air Room Air Room Air 03/23/25 03:01 03/23/25 04:01 03/23/25 08:22 Temperature 99.3 F 98.9 F 98.9 F Pulse Rate Pulse Rate [Pulse Oximeter] 51 L 68 74 Respiratory Rate 14 16 16 Blood Pressure Blood Pressure [Ri ght Arm] 107/54 L 104/57 L 119/79 Pulse Oximetry 99 99 99 Oxygen Delivery Me thod Room Air Room Air Room Air 03/23/25 08:22 03/23/25 11:00 Temperature 98.6 F Pulse Rate Pulse Rate [Pulse Oximeter] 74 76 Respiratory Rate 16 18 Blood Pressure Blood Pressure [Ri ght Arm] 108/55 L Pulse Oximetry 98 Oxygen Delivery Me thod Room Air OB - DS: Summary Hospital Course Hospital Course: The patient is a 24 year old G [] P [] at [] weeks gestation that was admitted to the Center on 03/22/25 for []. She had an [uncomplicated/complicated] [vaginal/] delivery. She delivered a viable [male/female] infant. She is [breast/bottle] feeding. the patient has done well. Peripartum Data Procedures: Procedures Operation Date: 03/22/25 17:00 Actual Procedure Side Surgeon p LAPAROSCOPY WITH FULGARATION AND EXCISION OF ENDOMETRIOSIS Not Applicable Maria Day MD s Laparoscopic Appendectomy Not Applicable aBtsheva Frazier MD Time Spent with Patient Time attestation: Total time spent providing and/or coordinating discharge services: Discharge Plan Discharge Disposition: Home w/ Parent or Adult Date of Admission: 03/22/25 11:34 Attending Provider on Discharge: Joslyn Mullen Primary Care Provider: Provider,Not a Local Condition: Stable Anticipated Discharge Date/Time: 03/23/25 15:02 Discharge Medications: New polyethylene glycol 3350 17 gram Powder In Packet 17 g PO DAILY PRN30 Days Qty: 30 0RF sennosides-docusate sodium [Stool Softener-Laxative] 8.6-50 mg Tablet 1 tab PO DAILY PRN30 Days Qty: 30 0RF acetaminophen 500 mg Tablet 1,000 mg PO Q6H PRN30 Days Qty: 30 0RF docusate sodium 100 mg Capsule 100 mg PO BID PRN (Reason: Constipation) 30 Days Qty: 30 0RF ibuprofen 600 mg Tablet 600 mg PO Q6H PRN (Reason: Abdominal Pain) 30 Days Qty: 30 0RF oxycodone 5 mg Tablet 5 mg PO Q6H PRN (Reason: Pain) 7 Days Qty: 15 0RF Discharge Orders: Discharge Order (Routine); Ordered 03/23/25 Ordered By: Joslyn Mullen Patient Education: Endometriosis (DC), General Anesthesia (DC), NH+C Post- Operative Instructions: Appendectomy, Laparoscopy Discharge Instructions Activity Level: No strenuous activity and Other Activity Detail: Activity as tolerated. Avoid strenuous activity. Discharge Diet: Other Follow Up Appointments: Provider,Not a Local [Primary Care Provider, Family Practice] Forms: MyHealth Info Instructions Discharge Comments: LAPAROSCOPY POSTOPERATIVE INSTRUCTIONS ACTIVITY Walking is encouraged, even if it is just short distances. Try to walk up to 6 times during the day. You may climb stairs as tolerated, but not for exercise. If you have a lengthy trip home after surgery, for 5 minutes or so every hour. To not participate strenuous activities, such as aerobic exercise. No heavy lifting/pushing/pulling for 4-6 weeks. Do not lift anything more than about 15 lbs (such as laundry, groceries, children, pets), vacuum, push heavy doors or grocery carts, etc. No driving for about 2 weeks after surgery, while you are taking narcotic pain medication, or until you feel that you are ready. Practice checking your blind spot and stepping hard on the brake. Avoid sitting or lying in bed for more than 2 hours at a time while you are awake to reduce your risk of blood clots. You may return to work when directed by your physician. Please contact your doctor if you need any return to work letters or medical leave paperwork to be completed. WOUND CARE You will have 4 small incisions on your abdomen. There will be dissolvable stitches under your skin that do not need to be removed. Shower daily after surgery. Clean your incision with mild antibacterial soap and water. Pat your incision dry with a clean towel. No tub baths until wound is completely healed. Wash your hands frequently, especially before touching your incision, changing any dressings, after using the restroom, and before eating. Avoid wearing tight clothing over your incision. Breathable, loose clothing is more comfortable. Do not use hot tub, whirlpool or go swimming unless otherwise instructed by your health care provider. PAIN MANAGEMENT Take your oral pain medication as needed. You should be taking Ibuprofen 600mg every 6 hours with 1000 mg of Tylenol every 6 hours. You can take these together every six hours or alternate them every 3 hours. You should then take the oxycodone as needed if you have breakthrough pain on top of the Tylenol and Ibuprofen. Some pain medications can cause constipation so you should take a stool softener (i.e. colace/senna) while you are on these medications. You may also take milk of magnesia or Miralax for constipation. If you take narcotic medications for pain, do not: Adzing And Boring Machine Helper operate motorized vehicles/equipment, drink alcoholic beverages, make important decision or sign legal documents. WHAT TO EXPECT AT HOME Recovery from surgery is generally 2-4 weeks, but sometimes longer for more strenuous activity. It is normal to be very tired during this time. You will most likely experience gas pain, abdominal swelling, or shoulder pain for 24-72 hours after surgery. This is from the carbon dioxide gas put into your abdomen to better visualize your organs. A warm shower, heating pad, and/or walking may help. WHEN TO CALL YOUR DOCTOR : Fever (>100.4?F or 38.0?C) or chills. Incision problems such as redness, warmth, swelling, or foul-smelling drainage. Severe nausea or persistent vomiting. Bright red vaginal bleeding (soaking >2 pad/hour) or foul-smelling vaginal drainage. Severe pain not relieved with pain medication. Pain and swelling in your legs, especially if it is only on one side and not the other. Pain with urination, cloudy urine, or foul-smelling urine. Or if you have any other problems or questions. CALL 911 OR GO TO THE EMERGENCY ROOM IF YOU HAVE: Any shortness of breath, difficulty breathing, or chest pain. FOLLOW UP Women's health clinic in 2 weeks for postoperative visit and treatment of endometriosis
--- NOTE | 2025-03-23 16:37 | PM.GYNDS1 ---
DS: Providers Provider Time Seen by Provider: 07:45 Date Seen: 03/23/25 Date of admission: 03/22/25 11:34 Primary care physician: Not a Local Provider Admitting Clinician: Hitesh Abad MD Consults: 03/23/25 07:49 Consult to Communications Coordinator [CONS] Routine Comment: needed for transportation and living conditions Reason for Consult:: Social Service Consult Attending Physician on discharge: Hitesh Abad MD Date of Discharge: 03/23/25 DS: Diagnosis Discharge Diagnosis (1) Endometriosis determined by laparoscopy: Status: Acute (2) Status post appendectomy: Status: Acute (3) Hemorrhagic ovarian cyst: Status: Acute NON DESTRUCTIVE TESTING TECHNICIAN-Discharge Summary Hospital Course Hospital Course Narrative: Patient is a 24 year old admitted on 03/21 for abdominal pain. She was subsequently diagnosed with 7.7 cm collapsing right ovarian cyst with probably hemorrhagic free fluid. She underwent laparoscopy with lysis of adhesions, fulguration excision of endometriosis. Intraoperative decision was made to perform an appendectomy due to the appearance of the appendix as well. Indication for surgery: Ruptured right ovarian cyst. Intraoperative findings: 1. Upon pelvic exam under anesthesia, the cervix and vagina were normal in appearance. Uterus was mobile and retroverted, of normal size and texture. There was a palpable right adnexal mass. 2. Upon laparoscopy, brown blood was present in small amounts throughout the peritoneal cavity. Survey of the upper abdomen revealed a normal appearance to the inferior edge of the liver, gallbladder and stomach. Bowels were grossly normal appearance. The appendix exhibited a nodularity in its proximal portion and the serosa was injected in appearance. Survey of the pelvis revealed the right ovary to be multi cystic and adherent to the right pelvic sidewall adjacent to the posterior lower uterine segment. There were multiple pockets of cystic fluid that more oozing dark brown viscous material. The ovary was enlarged. There were endometriosis implants along the cortex at multiple locations. There was also evidence of a corpus luteum. The left ovary, in contrast, was abnormally small, perhaps 2 cm in greatest dimension, and rather linear in appearance. Bilateral tubes were normal in appearance. The cul-de-sac exhibited multiple superficial endometriotic implants. The left uterosacral exhibited several days deeply infiltrating endometriotic implants. There was endometriosis along the peritoneum of the left posterior uterine segment. There were multiple blebs of serosa along the posterior surface of the uterus. Once the adhesions of the right ovary to the right pelvic sidewall were lysed, the serosa in this area was irregular but did not exhibit obvious endometriotic implants. The anterior uterus and the bladder reflection were normal in appearance. She had an uncomplicated surgery. Postoperative course has been uneventful. Vitals have been stable. She has remained afebrile. Antibiotics were discontinued given that etiology of the cyst was an endometrioma and not a TOA. WBC downtrended 15.35 --> 12.53. Hgb 10.7 -- 11.1 Today, on postoperative day 1, she reports the pain is well controlled. She has been able to ambulate Without difficulty. She is tolerating regular diet. She is passing flatus. Wilburn catheter has been removed, and she is voiding without difficulty. fancy needleworker was consulted to help patient coordinate discharge. Patient is from [place] and only here to work at the [employer]. Given that she now has lifting restrictions, she won't be able to work and plans to go home to recover. I also enlisted the help of our industrial coffee grinder to translate her operative reports to Ug[place]an as she will need continuing treatment for endometriosis. Time Spent with Patient Time attestation: Total time spent providing and/or coordinating discharge services: Time spent: Greater than 30 minutes NON DESTRUCTIVE TESTING TECHNICIAN - Exam Physical Exam: Vital signs: Temp Pulse Resp BP Pulse Ox O2 Del Method 98.6 F 76 18 108/55 L 98 Room Air 03/23/25 11:03/23/25 11:03/23/25 11:00 03/23/25 11:00 03/23/25 11:03/23/25 11:00 Narrative: Physical exam: General: No acute distress Psych: Alert and oriented x4, full affect HEENT: Normocephalic, atraumatic Heart: Regular rate and rhythm, no murmur rub or gallop Lungs: Clear to auscultation bilaterally Abdomen: Normoactive bowel sounds, soft, no tenderness, rebound, or guarding Incision(s): Appropriately tender to palpation. Clean, dry, and intact. No erythema, induration, or abnormal discharge/breakdown Skin: No lesions or rashes Lower extremities: No edema or erythema Pelvic exam: Deferred NON DESTRUCTIVE TESTING TECHNICIAN - DS: Data Data Completed and Pending Labs on day of discharge: Labs from last 24 hours 03/23/25 03/23/25 03/21/25 05:46 00:50 13:15 WBC 12.53 H 15.35 H RBC 3.90 L 3.76 L Hgb 11.1 L 10.7 L Hct 34.5 33.2 MCV 89 88 MCH 29 29 MCHC 32 32 RDW Coeff of Aram 14.3 14.0 Plt Count 293 264 Neut % (Auto) 91.5 H 95.7 H Lymph % (Auto) 5.6 L 2.2 L [place] % (Auto) 2.6 0.7 Eos % (Auto) 0.0 0.0 Baso % (Auto) 0.1 0.0 Neut # (Auto) 11.50 H 14.70 H Lymph # (Auto) 0.70 L 0.30 L [place] # (Auto) 0.30 0.10 Eos # (Auto) 0.00 0.00 Baso # (Auto) 0.00 0.00 Abs Immat Gran (auto) 0.00 0.20 Imm/Tot Granulo (auto) 0.2 1.4 INR 1.19 H APTT 30 Hep Bs Antigen Negative Hepatitis C Antibody Negative HIV 1&2 Ab/P24 Ag 4thGn Negative Preliminary micro results at discharge 03/22/25 20:29 Aerobic Culture - Preliminary Peritoneal Fluid Culture in Progress Anaerobic Culture - Preliminary Culture in Progress 03/21/25 13:15 Blood Culture - Preliminary Blood NO GROWTH AFTER 48 HOURS 03/21/25 13:15 Blood Culture - Preliminary Blood NO GROWTH AFTER 48 HOURS Procedures Procedures: Procedures Operation Date: 03/22/25 17:00 Actual Procedure Side Surgeon p LAPAROSCOPY WITH FULGARATION AND EXCISION OF ENDOMETRIOSIS Not Applicable Maria Day MD s Laparoscopic Appendectomy Not Applicable Batsheva Frazier MD Discharge Plan Discharge Disposition: Home w/ Parent or Adult Date of Admission: 03/22/25 11:34 Attending Provider on Discharge: Joslyn Mullen Primary Care Provider: Provider,Not a Local Condition: Stable Anticipated Discharge Date/Time: 03/23/25 15:02 Discharge Medications: New polyethylene glycol 3350 17 gram Powder In Packet 17 g PO DAILY PRN30 Days Qty: 30 0RF sennosides-docusate sodium [Stool Softener-Laxative] 8.6-50 mg Tablet 1 tab PO DAILY PRN30 Days Qty: 30 0RF acetaminophen 500 mg Tablet 1,000 mg PO Q6H PRN30 Days Qty: 30 0RF docusate sodium 100 mg Capsule 100 mg PO BID PRN (Reason: Constipation) 30 Days Qty: 30 0RF ibuprofen 600 mg Tablet 600 mg PO Q6H PRN (Reason: Abdominal Pain) 30 Days Qty: 30 0RF oxycodone 5 mg Tablet 5 mg PO Q6H PRN (Reason: Pain) 7 Days Qty: 15 0RF Discharge Orders: Discharge Order (Routine); Ordered 03/23/25 Ordered By: Joslyn Mullen Patient Education: Acetaminophen (By mouth), Ibuprofen (By mouth), Laxative, Stool Softeners (By mouth) (Doculax, Colace, Colace Clear, DSS), Oxycodone, Rapid Release (By mouth), Polyethylene Glycol 3350 (By mouth) (Miralax, Healthylax..., Senna (By mouth), Endometriosis (DC), General Anesthesia (DC), NH+C Post-Operative Instructions: Appendectomy, Laparoscopy Discharge Instructions Activity Level: No strenuous activity and Other Activity Detail: Activity as tolerated. Avoid strenuous activity. Discharge Diet: Other Follow Up Appointments: Provider,Not a Local [Primary Care Provider, Family Practice] Forms: [facility] Info Instructions Discharge Comments: LAPAROSCOPY POSTOPERATIVE INSTRUCTIONS ACTIVITY Walking is encouraged, even if it is just short distances. Try to walk up to 6 times during the day. You may climb stairs as tolerated, but not for exercise. If you have a lengthy trip home after surgery, for 5 minutes or so every hour. To not participate strenuous activities, such as aerobic exercise. No heavy lifting/pushing/pulling for 4-6 weeks. Do not lift anything more than about 15 lbs (such as laundry, groceries, children, pets), vacuum, push heavy doors or grocery carts, etc. No driving for about 2 weeks after surgery, while you are taking narcotic pain medication, or until you feel that you are ready. Practice checking your blind spot and stepping hard on the brake. Avoid sitting or lying in bed for more than 2 hours at a time while you are awake to reduce your risk of blood clots. You may return to work when directed by your physician. Please contact your doctor if you need any return to work letters or medical leave paperwork to be completed. WOUND CARE You will have 4 small incisions on your abdomen. There will be dissolvable stitches under your skin that do not need to be removed. Shower daily after surgery. Clean your incision with mild antibacterial soap and water. Pat your incision dry with a clean towel. No tub baths until wound is completely healed. Wash your hands frequently, especially before touching your incision, changing any dressings, after using the restroom, and before eating. Avoid wearing tight clothing over your incision. Breathable, loose clothing is more comfortable. Do not use hot tub, whirlpool or go swimming unless otherwise instructed by your health care provider. PAIN MANAGEMENT Take your oral pain medication as needed. You should be taking Ibuprofen 600mg every 6 hours with 1000 mg of Tylenol every 6 hours. You can take these together every six hours or alternate them every 3 hours. You should then take the oxycodone as needed if you have breakthrough pain on top of the Tylenol and Ibuprofen. Some pain medications can cause constipation so you should take a stool softener (i.e. colace/senna) while you are on these medications. You may also take milk of magnesia or Miralax for constipation. If you take narcotic medications for pain, do not: Carpet Repairer operate motorized vehicles/equipment, drink alcoholic beverages, make important decision or sign legal documents. WHAT TO EXPECT AT HOME Recovery from surgery is generally 2-4 weeks, but sometimes longer for more strenuous activity. It is normal to be very tired during this time. You will most likely experience gas pain, abdominal swelling, or shoulder pain for 24-72 hours after surgery. This is from the carbon dioxide gas put into your abdomen to better visualize your organs. A warm shower, heating pad, and/or walking may help. WHEN TO CALL YOUR DOCTOR : Fever (>100.4?F or 38.0?C) or chills. Incision problems such as redness, warmth, swelling, or foul-smelling drainage. Severe nausea or persistent vomiting. Bright red vaginal bleeding (soaking >2 pad/hour) or foul-smelling vaginal drainage. Severe pain not relieved with pain medication. Pain and swelling in your legs, especially if it is only on one side and not the other. Pain with urination, cloudy urine, or foul-smelling urine. Or if you have any other problems or questions. CALL 911 OR GO TO THE EMERGENCY ROOM IF YOU HAVE: Any shortness of breath, difficulty breathing, or chest pain. FOLLOW UP Women's health clinic in 2 weeks for postoperative visit and treatment of endometriosis
--- NOTE | 2025-03-23 17:01 | PC.NURSE ---
Discharge: Patient pleasant and cooperative, A&O. VSS, afebrile. Patient reports pain in her abdomen this shift, managed with PRN medication, see MAR. IV removed with tip intact. Discharge instructions provided, all questions answered. Discharged at 1643
== END 2025-03-23 16:45 | disposition home or self-care (01) | DRG 743 ==
LOC: ED 13:19 → MEDSURG 15:36
PROVIDERS: Surgery; Admitting Provider Obstetrics & Gynecology; Emergency Provider Internal Medicine; Visit Provider Family Medicine
PROC: 0UB04ZZ Excision of Right Ovary, Percutaneous Endoscopic Approach (ICD-10-PCS; CPT 58662; principal; 2025-03-22 17:00)
PROC: 0DTJ4ZZ Resection of Appendix, Percutaneous Endoscopic Approach (ICD-10-PCS; CPT 44970; 2025-03-22 17:00)
DX: N83.291 Other ovarian cyst, right side (principal); N80.101 Endometriosis of right ovary, unspecified depth; N80.311 Superficial endometriosis of the anterior cul-de-sac; N80.3B2 Deep endometriosis of the left uterosacral ligament; N80.3C2 Endometriosis of the left uterosacral ligament, unspecified depth; N73.6 Female pelvic peritoneal adhesions (postinfective); K37 Unspecified appendicitis; B37.31 Acute candidiasis of vulva and vagina; R10.31 Right lower quadrant pain
CPT/HCPCS: 00840; 36415; 74177; 76830; 76856; 80053; 81001; 81003; 83036; 83690; 84703; 85025; 85610; 85730; 86140; 86592; 86703; 86803; 87040; 87070; 87075; 87205; 87340; 87491; 87591; 93976; 99283; 99284; 99285; A9270; J0665; J0696; J1100; J1171; J1630; J1836; J1885; J2250; J2270; J2371; J2405; J2704; J2710; J3010; J7120; Q9967